=== PATIENT | male | born 1950 | race Caucasian/White ===

== ENCOUNTER → 2021-11-26 | Day surgery (SDC) | payer MEDICARE ==
[2021-11-23 12:39] LABS: BASOPHILS # (AUTO) 0.1 X10'3 (0-0.2); EOSINOPHILS # (AUTO) 0.3 X10'3 (0-0.9); EOSINOPHILS % (AUTO) 8.2 % (0-6); MEAN CORPUSCULAR HGB CONC 32.6 g/dL (33.0-36.5); MONOCYTES # (AUTO) 0.4 X10'3 (0-0.9); NEUTROPHILS # (AUTO) 1.9 X10'3 (1.8-7.7)
[2021-11-23 12:41] LABS: BASOPHILS % (AUTO) 2.8 % (0-1); LYMPHOCYTES # (AUTO) 0.7 X10'3 (1.1-4.8); LYMPHOCYTES % (AUTO) 21.7 % (21-51); MEAN CORPUSCULAR HEMOGLOBIN 31.2 PG (27.0-31.0); MEAN CORPUSCULAR VOLUME 95.8 FL (78-98); MEAN PLATELET VOLUME 7.5 FL (7.4-10.4); MONOCYTES % (AUTO) 11.1 % (2-12); NEUTROPHILS % (AUTO) 56.2 % (42-75); PRE OP HEMATOCRIT 44.9 % (42.0-52.0); PRE OP HEMOGLOBIN 14.7 g/dL (14.0-17.9); PRE OP PLATELET COUNT 196 X10'3 (140-440); RED BLOOD COUNT 4.69 X10'6 (4.70-6.10); RED CELL DISTRIBUTION WIDTH 14.6 % (11.5-14.5)
[2021-11-23 13:03] LABS: PRE OP INR 2.7 INR
[2021-11-23 13:07] LABS: ALBUMIN 3.8 G/DL (3.4-5.0); ALBUMIN/GLOBULIN RATIO 1.2 (1.1-1.5); ALKALINE PHOSPHATASE 58 IU/L (46-116); BLOOD UREA NITROGEN 18 MG/DL (7-18); BUN/CREATININE RATIO 18.8 (5.4-32.0); CALCIUM 8.4 MG/DL (8.5-10.1); CHLORIDE 106 MMOL/L (99-107); CREATININE 0.96 MG/DL (0.60-1.10); PRE OP ALT 30 U/L (30-65); PRE OP ANION GAP 5 (8-16); PRE OP AST 17 U/L (10-37); PRE OP BILIRUB, TOTAL 0.4 MG/DL (0.0-1.0); PRE OP GLUCOSE 91 MG/DL (70-104); PRE OP POTASSIUM 4.3 MMOL/L (3.4-5.1); PRE OP SODIUM 141 MMOL/L (135-145); TOTAL PROTEIN 6.9 G/DL (6.4-8.2); eGFR 77 ML/MIN
[2021-11-26] VITALS (9 sets, daily range): BP systolic 133–148; BP diastolic 80–92
[~2021-11-26] VITALS: Ht 185.4 cm; Wt 83.2 kg
[~2021-11-26] MED LIST: ALIVE MULTIVITAMIN; ASCO-336 PO; BUPIVAcaine/PF 7.5mg/ml (0.75%) 10ml vial ONE; COU7.5T PO; COVID-19 VAC, TRIS(PFIZER)/PF 30 MCG/0.3 ML VIAL IMVAC ONE; LIDOcaine 1% (10mg/ml) 2ml vial ONE; MIDAZolam 1 MG/ML 5ML VIAL ONE; WARF10TA45 PO; famotidine 20mg tablet PO ONE; fentaNYL/PF 50MCG/1 ML 2ML syringe IV PRN; fentaNYL/PF 50MCG/1 ML 2ML syringe ONE; hydrALAZINE 20mg/ml inj. IV PRN; labetalol 20mg/4ml (5mg/ml) syringe IV PRN; morphine 2 MG/ML inj. syringe IV PRN; morphine 4 MG/ML inj SYRINge IV PRN; ondansetron/PF 4mg/2ml inj IV PRN; ringers solution, lacted 1,000 ML IV SCH
--- NOTE | 2021-11-26 14:55 | NUR ---
Received from OR via [facility], accompanied by Anesthesiologist DR WILKINSON and report given by Anesthesiolgist. PT PRESENTS WITH PIV 20G RIGHT AC. DRESSING ON LEFT HAND/WRIST CDI, VSS. Addendum: 11/26/21 at 1525 by Angela Douglass RN RN Amended: Links added.
--- NOTE | 2021-11-26 16:05 | NUR ---
I HAVE REVIEWED D/C INSTRUCTIONS WITH PATIENT AND THEY HAVE VERBALIZED UNDERSTANDING OF INSTRUCTIONS. PATIENT D/C HOME WITH ALL BELONGINGS AND FAMILY GAVE TRANSPORT Addendum: 11/26/21 at 1654 by Angela Douglass RN, RN Amended: Links added.
== END | disposition home or self-care (01) ==
LOC: PAS 11:47
PROVIDERS: ATTEND Orthopaedic Surgery Hand Surgery
DX: G56.02 Carpal tunnel syndrome, left upper limb (principal); Z79.899 Other long term (current) drug therapy; Z72.89 Other problems related to lifestyle; Z87.891 Personal history of nicotine dependence; Z98.890 Other specified postprocedural states; Z86.718 Personal history of other venous thrombosis and embolism
CPT/HCPCS: 29848; 80053; 82948; 85025; 85610; J0690; J2250; J3010; J3490; J7030; J7060; J7120; Z7506; Z7512; A4215; A7000

== ENCOUNTER 2022-07-27 07:14 | Day surgery (SDC) | payer MEDICARE ==
[2022-07-22 15:47] LABS: CLARITY,URINE CLEAR (Clear); COLOR,URINE YELLOW (Yellow); GLUCOSE, URINE NEGATIVE (Neg); KETONES,URINE NEGATIVE (Neg); LEUKOCYTE ESTERASE ,URINE NEGATIVE (Neg); NITRITES, URINE NEGATIVE (Neg); OCCULT BLOOD,URINE NEGATIVE (Neg); PH,URINE 5.5 (4.8-8.0); PROTEIN,URINE NEGATIVE (Neg); UROBILINOGEN,URINE 0.2 E.U/dL (0.2-1.0)
[2022-07-22 15:58] LABS: UA COLLECTION TYPE NON-SPECIFIED
[2022-07-22 16:04] LABS: ALBUMIN/GLOBULIN RATIO 1.4 (1.1-1.5); ALKALINE PHOSPHATASE 56 IU/L (46-116); BLOOD UREA NITROGEN 15 MG/DL (7-18); CALCIUM 8.9 MG/DL (8.5-10.1); CHLORIDE 103 MMOL/L (99-107); CREATININE 0.94 MG/DL (0.60-1.10); PRE OP ALT 27 U/L (30-65); PRE OP ANION GAP 6 (8-16); PRE OP AST 22 U/L (10-37); PRE OP BILIRUB, TOTAL 0.7 MG/DL (0.0-1.0); PRE OP GLUCOSE 88 MG/DL (70-104); PRE OP POTASSIUM 4.2 MMOL/L (3.4-5.1); PRE OP SODIUM 138 MMOL/L (135-145); TOTAL CARBON DIOXIDE 28.7 MMOL/L (24-32); TOTAL PROTEIN 6.9 G/DL (6.4-8.2); eGFR 79 ML/MIN
[2022-07-22 16:11] LABS: BASOPHILS # (AUTO) 0.1 X10'3 (0-0.2); EOSINOPHILS # (AUTO) 0.3 X10'3 (0-0.9); LYMPHOCYTES % (AUTO) 21.7 % (21-51); MEAN CORPUSCULAR HEMOGLOBIN 31.6 PG (27.0-31.0); MEAN CORPUSCULAR HGB CONC 32.8 g/dL (33.0-36.5); MEAN CORPUSCULAR VOLUME 96.3 FL (78-98); MEAN PLATELET VOLUME 7.7 FL (7.4-10.4); MONOCYTES # (AUTO) 0.5 X10'3 (0-0.9); NEUTROPHILS # (AUTO) 2.6 X10'3 (1.8-7.7); NEUTROPHILS % (AUTO) 59.3 % (42-75); PRE OP HEMATOCRIT 45.3 % (42.0-52.0); PRE OP HEMOGLOBIN 14.9 g/dL (14.0-17.9); PRE OP PLATELET COUNT 196 X10'3 (140-440); RED BLOOD COUNT 4.71 X10'6 (4.70-6.10); RED CELL DISTRIBUTION WIDTH 14.9 % (11.5-14.5)
[2022-07-27] VITALS (9 sets, daily range): BP systolic 120–170; BP diastolic 62–96
[~2022-07-27] VITALS: Ht 185.4 cm; Wt 97.3 kg
[~2022-07-27 07:14] MED LIST changes: -ALIVE MULTIVITAMIN; -BUPIVAcaine/PF 7.5mg/ml (0.75%) 10ml vial ONE; -COVID-19 VAC, TRIS(PFIZER)/PF 30 MCG/0.3 ML VIAL IMVAC ONE; -LIDOcaine 1% (10mg/ml) 2ml vial ONE; -MIDAZolam 1 MG/ML 5ML VIAL ONE; +MULT-955 PO; +TUMERIC; +ceFAZolin inj. 2,000 MG in dextrose 5%-water 100 ML IV ONE; -fentaNYL/PF 50MCG/1 ML 2ML syringe IV PRN; -fentaNYL/PF 50MCG/1 ML 2ML syringe ONE; -hydrALAZINE 20mg/ml inj. IV PRN; -labetalol 20mg/4ml (5mg/ml) syringe IV PRN; -morphine 2 MG/ML inj. syringe IV PRN; -morphine 4 MG/ML inj SYRINge IV PRN; -ondansetron/PF 4mg/2ml inj IV PRN
[2022-07-27] MEDS ORDERED: ondansetron/PF 4mg/2ml inj IV PRN (08:20)
[2022-07-27] MEDS ORDERED: ringers solution, lacted 1,000 ML IV SCH (08:20)
[2022-07-27] MEDS ORDERED: morphine 2 MG/ML inj. syringe IV PRN (08:20)
[2022-07-27] MEDS ORDERED: labetalol 20mg/4ml (5mg/ml) syringe IV PRN (08:20)
[2022-07-27] MEDS ORDERED: morphine 4 MG/ML inj SYRINge IV PRN (08:20)
[2022-07-27] MEDS ORDERED: hydrALAZINE 20mg/ml inj. IV PRN (08:20)
[2022-07-27] MEDS ORDERED: fentaNYL/PF 50MCG/1 ML 2ML syringe IV PRN (08:20)
[2022-07-27] MEDS ORDERED: BUPIVAcaine 0.5% inj/PF 30 ML ONE (09:29)
[2022-07-27] MEDS ORDERED: sevoflurane 250ml liquid IH ONE (09:53)
[2022-07-27] MEDS ORDERED: neostigmine methylsulfate 1 MG/ML 10ml vial ONE (09:53)
[2022-07-27] MEDS ORDERED: dexamethasone sod phosphate 10mg/ml inj ONE (09:53)
[2022-07-27] MEDS ORDERED: glycopyrrolate 0.2mg/ml inj ONE (09:53)
[2022-07-27] MEDS ORDERED: LIDOcaine 2% (20mg/ml) 5ml vial ONE (09:53)
[2022-07-27] MEDS ORDERED: fentaNYL/PF 50MCG/1 ML 2ML syringe ONE (10:02)
[2022-07-27] MEDS ORDERED: midazolam 1 mg/ML 2ml injection ONE (10:02)
[2022-07-27] MEDS ORDERED: rocuronium 10mg/ml inj IV ONE (10:16)
[2022-07-27] MEDS ORDERED: propofol inj 20 ML IV ONE (10:17)
[2022-07-27] MEDS ORDERED: ondansetron/PF 4mg/2ml inj ONE (10:18)
[2022-07-27] MEDS ORDERED: BUPIVAcaine 0.5% inj/PF 30 ml vial IJ ONE (10:29)
--- NOTE | 2022-07-27 11:20 | NUR ---
Received from OR via , accompanied by Anesthesiologist and report given by Anesthesiolgist. PATIENT A&OX4, DENIES PAIN, V/S WNL, SCD ON , PIV 20G LUE, LAPS SITES CDI TO ABDOMEN.
--- NOTE | 2022-07-27 11:22 | NUR ---
PATIENT NOW C/O PAIN SEE EMAR
[2022-07-27] MEDS: fentaNYL/PF 50MCG/1 ML 2ML syringe IV PRN ×2 (11:34→11:39)
[2022-07-27] MEDS ORDERED: HYDROcodone/acetaminophen 10/325mg tab PO ONE (11:35)
--- NOTE | 2022-07-27 12:35 | NUR ---
PATIENT A&OX4, DENIES PAIN, V/S WNL, SCD OFF , PIV 20G LUE D/C, LAPS SITES DERMABONDED CDI TO ABDOMEN. I HAVE REVIEWED D/C INSTRUCTIONS WITH PATIENT AND THEY HAVE VERBALIZED UNDERSTANDING OF INSTRUCTIONS. PATIENT D/C HOME WITH ALL BELONGINGS AND FAMILY GAVE TRANSPORT
== END 2022-07-27 12:35 | disposition home or self-care (01) ==
LOC: PAS 07:14
PROVIDERS: ATTEND Surgery
DX: K40.90 Unilateral inguinal hernia, without obstruction or gangrene, not specified as recurrent (principal); Z87.891 Personal history of nicotine dependence; Z86.718 Personal history of other venous thrombosis and embolism; Z98.890 Other specified postprocedural states; Z79.899 Other long term (current) drug therapy
CPT/HCPCS: 36415; 49650; 80053; 81003; 82948; 85025; 93005; C1758; C1781; J0690; J2250; J2270; J2405; J2704; J3010; J3490; J7030; J7060; J7120; S0020; Z7506; Z7508; Z7512; A4215; A4618; J1100; J2710